=== PATIENT | female | born 2000 | race Caucasian/White ===

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

== ENCOUNTER 2025-08-18 18:18 | Emergency (ER) | payer OTHER, SELFPAY ==
[2025-08-18 18:22] VITALS: BP 132/84; PULSE 76; RESP 18; TEMP 37.1; O2SAT 98; BMI 24.5
[2025-08-18 18:53] LABS: Culture Indicated Urine Specimen Cultured
[2025-08-18 20:35] VITALS: BP 141/79; PULSE 90; O2SAT 100
--- NOTE | 2025-08-18 20:35 | ED.GENADULT ---
HPI - General Adult General Chief complaint: Urogenital-Female Stated complaint: suspected UTI, started today Time Seen by Provider: 08/18/25 20:35 Source: patient Mode of arrival: Ambulatory History of Present Illness HPI narrative: 24-year-old female with history of recurrent urinary tract infections, sexually active, no postcoital antibiotic trial, no anatomic imaging kidneys or bladders recalled, she has 3-4 urinary tract infections per year of last couple of years. Monogamous, denies history of pelvic infections, denies vaginal discharge symptoms. No recent antibiotic exposure. History penicillin allergy. Believes that she has been treated successfully with nitrofurantoin antibiotic in the past for urinary tract infection. Denies back pain, history of kidney stones, history of urologic surgical interventions. Denies current , no recent vaginal bleeding. Related Data Previous Rx's ?Medication ?Instructions ?Recorded sertraline 100 mg tablet 100 mg PO DAILY #90 tabs 06/14/24 levetiracetam 250 mg tablet 125 mg (1/2 x 250 mg) PO DAILY #90 01/23/25 (Keppra) tabs nitrofurantoin 100 mg PO Q12H 5 days #10 caps 08/18/25 monohydrate/macrocrystals 100 mg capsule (Macrobid) phenazopyridine 200 mg tablet 200 mg PO TID PRN pain #10 tabs 08/18/25 (Pyridium) Allergies Allergy/AdvReac Type Severity Reaction Status Date / Time Penicillins Allergy Intermediate Hives Verified 08/18/25 18:23 Patient History Medical History (Updated 08/18/25 @ 21:24 by Camilo Russo MD) Seizures (~2013) PTSD (post-traumatic stress disorder) (~2022) Depression (~2022) Anxiety (~2022) Social History Smoking Status: Never smoker alcohol intake: never substance use type: does not use Smoking Status: Never smoker Exam Narrative Exam Narrative: GENERAL: Well-developed patient, in mild distress. HEAD: Atraumatic. Normocephalic. EYES: Pupils equal round and reactive. Extraocular motions intact. No scleral icterus. No injection or drainage. ENT: Nose without bleeding, purulent drainage. Throat without erythema, tonsillar hypertrophy or exudate. Airway patent. NECK: Trachea midline. Non tender CARDIOVASCULAR: Regular rate and rhythm without murmurs, gallops, or rubs. RESPIRATORY: Clear to auscultation. Breath sounds equal bilaterally. No wheezes, rales, or rhonchi. GASTROINTESTINAL: Abdomen soft, non-tender, nondistended. EXTREMITIES: No edema or joint tenderness. BACK: Nontender without deformity or crepitance. No flank tenderness. NEURO: AOx3. Motor functions grossly nonfocal. SKIN: No rash or erythema of visible areas Initial Vital Signs Initial Vital Signs: Vital Signs Temperature 98.8 F 08/18/25 18:22 Pulse Rate 76 08/18/25 18:22 Respiratory Rate 18 08/18/25 18:22 Blood Pressure 132/84 08/18/25 18:22 Pulse Oximetry 98 08/18/25 18:22 Oxygen Delivery Method Room Air 08/18/25 18:22 Course Orders Ordered: Discontinued Medications Nitrofurantoin Macrocrystals (Nitrofurantoin Er 100 Mg Capsule) 100 mg PO NOW ONE Stop: 08/18/25 21:22 Last Admin: 08/18/25 21:32 Dose: 100 mg Documented By: Ondansetron HCl (Ondansetron 4 Mg Odt) 4 mg PO NOW PRN PRN Reason: Nausea And Vomiting Phenazopyridine HCl (Phenazopyridine 100 Mg Tablet) 200 mg PO NOW ONE Stop: 08/18/25 21:22 Last Admin: 08/18/25 21:32 Dose: 200 mg Documented By: Vital Signs Vital signs: Vital Signs - 8 hr 08/18/25 20:35 08/18/25 20:35 08/18/25 21:00 Pulse Rate 90 90 Respiratory Rate 16 Blood Pressure 141/79 H Pulse Oximetry 100 99 Oxygen Delivery Method Room Air Room Air 08/18/25 21:00 Pulse Rate Respiratory Rate Blood Pressure 125/74 Pulse Oximetry Oxygen Delivery Method Medical Decision Making Lab Data Labs: Lab Results 08/18/25 Range/Units 18:31 Urine RBC 5-10/hpf H (0-5/HPF) Urine WBC 10-30/hpf H (0-5/HPF) Ur Squamous Epith Cells 1-5 /hpf (0-5/HPF) Urine Bacteria Few (2-10) H (None) Ur Culture Indicated? Specimen cultured Vol Urine Centrifuged 10ml (spun) Point of Care Testing Test Results Negative Urine Dip Bedside Urine Glucose 100 mg/dl Bedside Urine Bilirubin - Negative Bedside Urine Ketone - Negative Urine Specific [place] 1.020 Bedside Urine Occult Blood +++ Bedside Urine pH 6.0 Bedside Urine Protein +/- 15 Bedside Urine Urobilinogen +/- 1mg Bedside Urine Nitrite - Negative Bedside Urine Leukocytes + 70 Esterase Point of care testing: Point of Care Testing Test Results Negative Urine Dip Bedside Urine Glucose 100 mg/dl Bedside Urine Bilirubin - Negative Bedside Urine Ketone - Negative Urine Specific [place] 1.020 Bedside Urine Occult Blood +++ Bedside Urine pH 6.0 Bedside Urine Protein +/- 15 Bedside Urine Urobilinogen +/- 1mg Bedside Urine Nitrite - Negative Bedside Urine Leukocytes + 70 Esterase MDM Narrative Medical decision making narrative: 24-year-old female with frequent painful urination history of recurrent UTI 3-4 per your, no postcoital antibiotics. Afebrile, sirs screen negative on triage, without CVA tenderness, no anterior abdominal tenderness. Suspect cystitis clinically. Urinalysis with infectious markers and bacteriuria, urine culture indicated/triggered. Trial of oral Pyridium, dose given, further prescription sent to requested pharmacy. Oral nitrofurantoin 1st antibiotic dose given, prescription for further antibiotic course sent to requested pharmacy. Encouraged to drink plenty of fluids. Consider anatomic information ultrasound as an outpatient, consider trial of postcoital antibiotics given frequency of urinary tract infections, consider urology follow up consultation given clinic off information for Dr. Forman. Encouraged to continue current medications as prescribed. Take antibiotics and Pyridium as directed. Drink plenty of fluids. Discharged home with family. Follow up as above. Return precautions discussed. Discharge Plan Departure Patient Disposition: Home Clinical Impression: Urinary tract infection Activity Restrictions/Additional Instructions: Painful frequent urination, history of urinary tract infections 3-4 per year, sexually active. No postcoital antibiotic prophylaxis consider so far. Now with typical UTI symptoms since yesterday. No fever on triage. test negative. Urinalysis suspicious for infection, urine culture pending per protocol. Trial of Macrobid antibiotic 5 day course, also consider Pyridium to help with bladder anesthetic pain control. Drink plenty of fluids. Consider recheck and of course of antibiotic. Consider discussion with your doctor about postcoital antibiotics or some other strategy to help with evaluation/treatment of your recurrent urinary tract infections. Consider urology consultation, local urology clinic information also provided, though you might require referral from your primary care provider. Return to this/nearest emergency department for any change worsening symptoms or concerns prior. Prescriptions: New nitrofurantoin monohyd/m-cryst [Macrobid] 100 mg capsule 100 mg PO Q12H 5 Days Qty: 10 0RF Rx Instructions: must administer with a meal/food phenazopyridine [Pyridium] 200 mg tablet 200 mg PO TID PRN (Reason: pain) Qty: 10 0RF No Action sertraline 100 mg tablet 100 mg PO DAILY Qty: 90 3RF levetiracetam [Keppra] 250 mg tablet 125 mg PO DAILY Qty: 90 3RF Referrals: Richard Johnson MD [Primary Care Provider, Family Practice] Edouard Forman DO [Physician, Urology] Stand Alone Forms: Patient Portal/API
--- NOTE | 2025-08-18 20:39 | PC.NURSE ---
Patient has recurrent UTIs, normally seen at [facility]. This year alone she has had about 4 already prior to this one. Unsure of what Rx she normally takes.
[2025-08-18 21:00] VITALS: BP 125/74; PULSE 90; RESP 16; O2SAT 99
[2025-08-18] MEDS: PHENAZOPYRIDINE 100 MG TABLET 200 MG PO (21:32)
[2025-08-18] MEDS: NITROFURANTOIN ER 100 MG CAPSULE PO (21:32)
== END 2025-08-18 21:32 | disposition home or self-care (01) ==
PROVIDERS: Emergency Provider Emergency Medicine; PCP Family Medicine
DX: N39.0 Urinary tract infection, site not specified (principal)
CPT/HCPCS: 81003; 81015; 81025; 87077; 87086; 87186; 99283